=== PATIENT | female | born 1985 | race African-American/Black ===

== ENCOUNTER 2017-11-05 13:02 | Emergency (ER) | payer MEDICAID ==
[~2017-11-05] VITALS: Ht 165.1 cm; Wt 55.0 kg
[2017-11-05 13:14] VITALS: BP 117/99; PULSE 97; RESP 18; TEMP 98.6; O2SAT 99
== END 2017-11-05 15:25 | disposition left against medical advice (07) ==
LOC: NED 13:02
DX: R10.9 Unspecified abdominal pain (principal); Z53.21 Procedure and treatment not carried out due to patient leaving prior to being seen by health care provider
CPT/HCPCS: 99281